=== PATIENT | female | born 1990 | race Caucasian/White ===

== ENCOUNTER → 2024-03-21 08:44 | Outpatient (REF) | payer BC, SELFPAY | LOC: PNTC 08:44 | PROVIDERS: ATTENDING PHYSICIAN Obstetrics & Gynecology | DX: Z34.00 Encounter for supervision of normal first pregnancy, unspecified trimester (principal); Z34.82 Encounter for supervision of other normal pregnancy, second trimester | CPT/HCPCS: 76801; 76813 ==

== ENCOUNTER → 2024-05-10 16:34 | Outpatient (REF) | payer BC, SELFPAY | LOC: PNTC 16:34 | PROVIDERS: ATTENDING PHYSICIAN Obstetrics & Gynecology | DX: Z34.00 Encounter for supervision of normal first pregnancy, unspecified trimester (principal) | CPT/HCPCS: 76805 ==

== ENCOUNTER → 2024-07-06 16:50 | Outpatient (REF) | payer BC, SELFPAY | LOC: REG 16:50 | PROVIDERS: ATTENDING PHYSICIAN Student in an Organized Health Care Education/Training Program | DX: Z34.00 Encounter for supervision of normal first pregnancy, unspecified trimester (principal) | CPT/HCPCS: 36415; 86850; 86900; 86901; J2790 ==

== ENCOUNTER 2024-09-21 08:57 | Inpatient (IN) | payer BC, SELFPAY ==
[2024-09-21 09:03] VITALS: BP 134/92; BMI 28.3
[2024-09-21 09:44] LABS: % Basophils 0.8 % (0-2); % Eosinophils 2.2 % (0-6); % Immature Granulocytes 1.1 % (0-0.5); % Monocytes 6.5 % (1.7-9.3); % Neutrophils 70.4 % (42.2-75.2); Absolute Basophils 0.1 10^3/uL (0-0.2); Absolute Eosinophils 0.2 10^3/uL (0-0.7); Absolute Immature Granulocytes 0.1 10^3/uL (0-0.05); Absolute Lymphocytes 1.9 10^3/uL (1.2-3.4); Absolute Monocytes 0.6 10^3/uL (0.1-0.6); Absolute Neutrophils 6.9 10^3/uL (1.4-6.5); Hematocrit 32.6 % (37.0-47.0); Hemoglobin 11.1 g/dL (12.0-16.0); Mean Corpuscular Hgb 29.7 pg (27.0-31.0); Mean Corpuscular Volume 87.2 fL (81.0-99.0); Mean Platelet Volume 12.6 fL (7.4-10.4); Nucleated Red Blood Cells % 0 %; Platelet Count 211 10^3/uL (130-400); Red Blood Cell Count 3.74 10^6/uL (4.20-5.40); Red Cell Dist. Width 13.4 % (11.5-14.5); White Blood Cell Count 9.8 10^3/uL (4.8-10.8)
[2024-09-21 10:08] LABS: Blood Urea Nitrogen 13 mg/dl (7-17); Calcium 8.8 mg/dl (8.4-10.2); Carbon Dioxide 18 mmol/L (22-30); Chloride 108 mmol/L (98-107); Estimated Creatinine Clearance 117 ml/min; Glucose 93 mg/dl (70-99); Potassium 4.6 mmol/L (3.5-5.1); Sodium 136 mmol/L (135-145); eGFR > 60.00
[2024-09-21 10:21] LABS: Protein/creatinine Ratio 0.8; Urine Protein 20 mg/dl
[2024-09-21] MEDS: LR 1000 IV ×2 (10:28→21:19)
[2024-09-21] MEDS: PITOCIN 30 UNITS/NSS 500 ML IV (10:28)
[2024-09-21 10:37] LABS: ALT (SGPT) 31 U/L (0-35); AST (SGOT) 36 U/L (14-36); Albumin 3.5 g/dl (3.5-5.0); Alkaline Phosphatase 176 U/L (38-126); Total Bilirubin 0.2 mg/dl (0.2-1.3); Total Protein 6.1 g/dl (6.3-8.2)
[2024-09-21] MEDS: FENTANYL/BUPIVACAINE 100 EPIDURAL (16:30)
[2024-09-21] MEDS: SUBLIMAZE 100 MCG EPIDURAL (16:30)
[2024-09-22] MEDS: TYLENOL 650 MG PO (09:27)
[2024-09-22] MEDS: SENOKOT-S 1 TABLET PO (09:27)
[2024-09-22] MEDS: MOTRIN 600 MG PO ×2 (09:28→16:24)
[2024-09-22] MEDS: PRENATAL PLUS 1 TABLET PO (09:30)
[2024-09-23] MEDS: MOTRIN 600 MG PO ×2 (01:52→10:51)
[2024-09-23 04:23] LABS: Hematocrit 30.9 % (37.0-47.0); Hemoglobin 10.3 g/dL (12.0-16.0)
[2024-09-23] MEDS: PRENATAL PLUS 1 TABLET PO (10:50)
[2024-09-23] MEDS: TYLENOL 650 MG PO (10:51)
[2024-09-23] MEDS: SENOKOT-S 1 TABLET PO (10:51)
[2024-09-23] MEDS: RHOGAM 300 MCG IM (11:15)
[2024-09-24 08:42] LABS: Cord ABG B.E. - POC -8.2 mmol/L; Cord ABG HCO3 - POC 17 mmol/L; Cord ABG pCO2 - POC 36 mmHg; Cord ABG pO2 - POC < 40 mmHg
[2024-09-25 16:06] LABS: Syphilis/T. pallidum Ab Reflex Negative (Negative)
== END 2024-09-23 14:58 | disposition home or self-care (01) | DRG 807 ==
LOC: LDRP 08:57
PROVIDERS: Obstetrics & Gynecology; ADMITTING PHYSICIAN Obstetrics & Gynecology; FAMILY PHYSICIAN Family Medicine
PROC: 3E033VJ Introduction of Other Hormone into Peripheral Vein, Percutaneous Approach (ICD-10-PCS; 2024-09-21)
PROC: 10E0XZZ Delivery of Products of Conception, External Approach (ICD-10-PCS; 2024-09-22)
PROC: 0KQM0ZZ Repair Perineum Muscle, Open Approach (ICD-10-PCS; 2024-09-22)
PROC: 3E0234Z Introduction of Serum, Toxoid and Vaccine into Muscle, Percutaneous Approach (ICD-10-PCS; 2024-09-23)
DX: O42.02 Full-term premature rupture of membranes, onset of labor within 24 hours of rupture (principal); Z37.0 Single live birth; Z3A.39 39 weeks gestation of pregnancy; O70.1 Second degree perineal laceration during delivery; O14.04 Mild to moderate pre-eclampsia, complicating childbirth; O26.893 Other specified pregnancy related conditions, third trimester; Z67.11 Type A blood, Rh negative
CPT/HCPCS: 88307; 36415; 80053; 82570; 84156; 85014; 85018; 85025; 85461; 86780; 86850; 86870; 86900; 86901; J2790